=== PATIENT | female | born 1960 | race Caucasian/White ===

== ENCOUNTER 2020-08-15 08:49 | Observation (INO) | payer OTHER, MEDICAID ==
[2020-08-15] MEDS ORDERED: Sodium Chloride 0.9% 10 ML Syringe FLUSH PRN (08:54)
[2020-08-15] MEDS ORDERED: Lactated Ringers 1,000 ML IV SCH (09:00)
[2020-08-15] MEDS ORDERED: Diphtheria,Pertussis(Acell),Tetanus Vaccine 0.5 ML Syringe IM ONE (09:38)
[2020-08-15] MEDS ORDERED: HYDROmorphone 1 MG/ML Syringe IVPUSH ONE (09:50)
[2020-08-15] MEDS ORDERED: Sodium Chloride 0.9% 1,000 ML IV SCH (10:00)
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
--- NOTE | 2020-08-15 10:49 | CR ---
Right tibia and fibula: AP and lateral views of the right tibia and fibula were obtained. Chondrocalcinosis is noted within the menisci of the knee. No acute fracture, dislocation or other bony abnormality is appreciated. Impression: 1. Chondrocalcinosis within the knee. 2. Nothing acute is otherwise seen on right tibia and fibula study. Diagnostic code #2
--- NOTE | 2020-08-15 10:49 | CR ---
Pelvis: AP view of the pelvis was obtained. Comparison: No prior study is available. Prominent acetabulum are seen within both hips. Sacroiliac joints are normal. No acute fracture or other abnormality is appreciated. Impression: 1. Slight hip findings which are chronic. 2. Nothing acute is otherwise seen on portable AP chest x-ray. Diagnostic code #2
--- NOTE | 2020-08-15 11:38 | CR ---
Left ankle: 3 views of the left ankle were obtained. Comparison: No prior ankle study is available. Ankle mortise is symmetric. No acute fracture, dislocation or other bony abnormality is appreciated. Impression: 1. Nothing acute is seen on left ankle exam. Diagnostic code #1
--- NOTE | 2020-08-15 11:39 | CR ---
Chest: Portable supine view of the chest was obtained. Comparison: No prior chest imaging. Mild atelectasis is seen within the lateral left costophrenic angle and within portions of the right lung. Lungs otherwise are clear with no acute parenchymal change. Heart size and mediastinum are normal. No pneumothorax is seen. No bony abnormality is definitely appreciated. Impression: 1. Mild atelectasis. 2. Nothing acute is otherwise seen on supine portable chest x-ray. Diagnostic code #2
--- NOTE | 2020-08-15 11:49 | CT ---
Head CT Technique: Multiple axial sections through the brain were obtained. Intravenous contrast was not utilized. Reconstructed coronal and sagittal images were obtained. Comparison: No prior study. Findings: Diffuse soft tissue swelling is noted within the right-sided scalp with a small amount of soft tissue hematoma. Ventricles along with basal cisterns and sulci over the convexities appear within normal limits for the patient's age. No abnormal parenchymal densities are seen. No evidence of intracranial hemorrhage. No midline shift or mass-effect is appreciated. Bone window settings were reviewed which show no acute mastoid sinus finding or paranasal sinus finding. No acute calvarial abnormality is appreciated. Impression: 1. Diffuse soft tissue swelling within the right scalp as well as a small amount of hematoma. 2. No acute intracranial abnormality is appreciated. Diagnostic code #2
--- NOTE | 2020-08-15 11:54 | CR ---
Bilateral knees: AP view of both knees were obtained as well as lateral study. Chondrocalcinosis is noted within both medial and lateral menisci on both sides of the knees. No joint effusion is seen on either side. No acute fracture or other abnormality is appreciated. Impression: 1. Chondrocalcinosis within the menisci on both knees. 2. Nothing acute is otherwise seen on 2 view bilateral knee exam. Diagnostic code #2
[2020-08-15] MEDS ORDERED: Lidocaine/EPINEPHrine/Tetracaine Soln 1 ML TOP ONE (12:54)
[2020-08-15] MEDS ORDERED: HYDROmorphone 0.5 MG/0.5 ML Syringe IVPUSH ONE (12:58)
--- NOTE | 2020-08-15 13:53 | CT ---
CT cervical spine Technique: Multiple axial sections were obtained from above C1 inferiorly through the bottom of T1. Reconstructed coronal and sagittal images were obtained. Comparison: No previous cervical spine exam is seen. Findings: Degenerative apophyseal changes at C3-4 causes moderate left-sided neural foraminal stenosis. Mild left-sided neural foraminal stenosis is noted at C4-5 which is due to degenerative apophyseal change. Other neural foramina are patent with no additional neural foraminal stenosis seen. No central canal stenosis is seen. Minimal spondylolisthesis is noted at C4-5 due to degenerative apophyseal change. Degenerative apophyseal change is also noted throughout other levels of the cervical spine. No acute fracture is seen. No acute subluxation is seen. Mild scoliosis is noted on the reconstructed AP views. There is fairly severe degenerative change noted within both temporomandibular joints. Impression: 1. Degenerative change as noted above with mild scoliosis. 2. Slight spondylolisthesis at C4-5 compatible with degenerative apophyseal change. 3. No acute fracture is seen. Diagnostic code #2
--- NOTE | 2020-08-15 13:59 | CT ---
CT lumbar spine Technique: Multiple axial sections were obtained from above the L1-2 disc inferiorly through the L5-S1 disc. Reconstructed sagittal and coronal images were obtained. Comparison: No prior lumbar spine imaging is available. Findings: Mild diffuse degenerative apophyseal change is noted. Vertebral body heights and disc spaces are maintained. Slight posterior disc bulging is seen to the left of midline at L4-5. No central canal stenosis or neural foraminal stenosis is seen. Slight scoliosis is noted. No fracture or subluxation is seen. Impression: 1. Minimal degenerative change. Mild scoliosis. 2. No acute fracture or subluxation is appreciated on CT study of the lumbar spine. Diagnostic code #2
--- NOTE | 2020-08-15 14:01 | CT ---
CT thoracic spine Technique: Multiple axial sections were obtained through the thoracic spine. Reconstructed coronal and sagittal images were obtained. Comparison: No prior thoracic spine imaging is available. Findings: Slight scoliosis is noted. Minimal degenerative apophyseal change is seen. Mild compression deformity is noted within T12. There are felt to be acute fracture lines present which likely represent acute compression deformity. Very minimal posterior bulging of the posterior vertebral line is seen by several millimeters. No central canal stenosis is noted. Other vertebral body heights are maintained. Other disc spaces are maintained. Mild scattered endplate osteophytes are noted. No additional fracture or other abnormality is appreciated. Impression: 1. Moderate compression deformity of T12 which is likely new. 2. Mild degenerative change. No other acute abnormality is appreciated. Diagnostic code #3
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
[2020-08-15] MEDS ORDERED: Acetaminophen 325 MG Tab PO PRN (16:01)
[2020-08-15] MEDS ORDERED: Ondansetron 4 MG/2 ML SDV IVPUSH PRN (16:02)
[2020-08-15] MEDS: Acetaminophen/HYDROcodone 325-10 MG Tab PO PRN ×2 (17:00→20:59)
[2020-08-15] MEDS ORDERED: NALTREXONE 4.5 MG PO SCH (21:00)
[2020-08-16] MEDS: Acetaminophen/HYDROcodone 325-10 MG Tab PO PRN ×3 (01:22→10:58)
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
== END 2020-08-16 10:50 | disposition home or self-care (01) ==
LOC: JD.ED 08:49 → JD.MS 14:27
PROVIDERS: ADMIT Surgery; ATTEND Surgery
DX: S80.11XA Contusion of right lower leg, initial encounter (principal); S22.000A Wedge compression fracture of unspecified thoracic vertebra, initial encounter for closed fracture; S00.03XA Contusion of scalp, initial encounter; Z88.0 Allergy status to penicillin; Z98.890 Other specified postprocedural states; V89.2XXA Person injured in unspecified motor-vehicle accident, traffic, initial encounter; Z20.822 Contact with and (suspected) exposure to COVID-19
CPT/HCPCS: 36415; 70450; 71045; 72125; 72128; 72131; 72170; 73560; 73590; 73610; 80053; 80306; 80307; 81001; 83690; 85025; 85610; 85730; 87635; 90715; A9270; J1170; J7030; 90471; 96374; 96376; 99284; 99285-25; G0378; U0002

== ENCOUNTER 2020-12-05 11:14 | Emergency (ER) | payer SELFPAY ==
--- NOTE | 2020-12-05 11:46 | EDM.PDOC ---
ED HPI GENERAL MEDICAL PROBLEM - General Chief Complaint: Respiratory Problem Stated Complaint: COVID /SPOUSE IS POSITIVE Time Seen by Provider: 12/05/20 11:40 Source of Information: Reports: Patient History Limitations: Reports: No Limitations - History of Present Illness INITIAL COMMENTS - FREE TEXT/NARRATIVE: 60-year-old female presents the emergency department today with complaints of cough, shortness of breath, headache, generalized body aches, nausea, diarrhea. Patient states that 3 days ago her toes have been tested positive for Covid. She developed the onset of her symptoms with a headache and sore throat approximately 1 week ago. She states that they progressed into cough shortness of breath generalized body aches nausea and diarrhea. She has denied vomiting. She states she has had decreased appetite over the past week. She denies any abdominal pain. She denies any urinary symptoms. She states she gets extremely shortness of breath with any exertion. She has not had her Covid vaccination and she has not had Covid. 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 Primary care provider is Mai Delgadillo NP. - Related Data Allergies Allergy/AdvReac Type Severity Reaction Status Date / Time Penicillins Allergy Rash Verified 12/05/20 11:51 sulfamethoxazole Allergy Swollen Verified 12/05/20 11:51 [From Bactrim] Tongue tetracycline Allergy Rash Verified 12/05/20 11:51 trimethoprim [From Bactrim] Allergy Swollen Verified 12/05/20 11:51 Tongue Home Meds: Home Meds Naltrexone 4.5 mg PO BEDTIME 08/15/20 [History] Past Medical History HEENT History: Reports: Cataract, Impaired Vision Other HEENT History: wears eyeglasses Cardiovascular History: Reports: Heart Murmur Genitourinary History: Reports: UTI, Recurrent BARREL RACER History: Reports: - Infectious Disease History Infectious Disease History: Reports: Chicken Pox, Influenza, Measles - Past Surgical History HEENT Surgical History: Reports: Adenoidectomy, Tonsillectomy Female Surgical History: Reports: Section Social & Family History - Family History Neurological: Reports: CVA, Seizure - Caffeine Use Caffeine Use: Reports: Coffee Caffeine Use Comment: Drinks about 3 cups per day ED ROS GENERAL - Review of Systems Review Of Systems: Comprehensive ROS is negative, except as noted in HPI. ED EXAM, GENERAL - Physical Exam Exam: See Below Exam Limited By: No Limitations General Appearance: Alert, WD/WN, Mild Distress Ears: Normal External Exam, Hearing Grossly Normal Nose: Normal Inspection Throat/Mouth: Normal Inspection, Normal Lips, Normal Voice, No Airway Compromise Head: Atraumatic Neck: Normal Inspection, Supple Respiratory/Chest: No Respiratory Distress, No Accessory Muscle Use, Chest Non- Tender, Crackles (Fine crackles noted to bilateral bases). No: Normal Breath Sounds (Fine crackles noted to bilateral bases) Cardiovascular: Normal Peripheral Pulses, Regular Rate, Rhythm, No Edema, No Murmur Peripheral Pulses: 2+: Radial (L), Radial (R) GI/Abdominal: Normal Bowel Sounds, Soft, Non-Tender, No Distention (Female) Exam: Deferred Rectal (Female) Exam: Deferred Back Exam: Normal Inspection Extremities: Normal Inspection, Normal Range of Motion, Non-Tender, No Pedal Edema, Normal Capillary Refill Neurological: Alert, Oriented, Normal Cognition Psychiatric: Normal Affect, Normal Mood Skin Exam: Warm, Dry, Intact, Normal Color, No Rash Lymphatic: No Adenopathy #1 Interpretation EKG Date: 12/05/20 Time: 12:24 Rhythm: NSR Rate (Beats/Min): 90 [place]: Normal P-Wave: Present QRS: Normal ST-T: Normal QT: Normal Comparison: NA - No Prior EKG EKG Interpretation Comments: Per Dr. Rodarte interpretation: Normal sinus rhythm at 90 bpm. Course - Vital Signs Text/Narrative:: As stated above patient with initial onset of symptoms of headache and sore throat approximately 5 days ago which progressed into fatigue, generalized body aches, cough, shortness of breath, nausea, diarrhea and decreased appetite. She states she has had the chills however has not checked fever as she has been taking Tylenol pretty consistently every 4 hours for the body aches and headache. Patient will be tested for Covid and will have Covid quick pick lab studies as well. We will obtain an EKG and portable view of the chest. O2 saturations in the emergency department are 94% at the time of my assessment. She does have fine crackles noted to the bilateral bases. Last Recorded V/S: Last Vital Signs Temp 98.2 F 12/05/20 11:45 Pulse 91 12/05/20 16:45 Resp 16 12/05/20 16:45 BP 129/87 12/05/20 16:45 Pulse Ox 92 L 12/05/20 16:45 - Orders/Labs/Meds Orders: Active Orders 24 hr Category Date Time Status EKG Documentation Completion [RC] STAT Care 12/05/20 12:03 Active RT Incentive Spirometry [RC] Q1HWA Care 12/05/20 14:22 Active Vital Signs [RC] Q15M Care 12/05/20 15:15 Active CULTURE URINE [MREF] Stat Lab 12/05/20 13:10 Received EPINEPHrine [Adrenalin] Med 12/05/20 14:34 Active 0.3 mg IM ONETIME PRN Famotidine [Pepcid] Med 12/05/20 14:34 Active 20 mg IVPUSH ONETIME PRN Sodium Chloride 0.9% [Saline Flush] Med 12/05/20 14:45 Active 30 ml FLUSH ASDIRECTED diphenhydrAMINE [Benadryl] Med 12/05/20 14:34 Active 50 mg IVPUSH ONETIME PRN methylPREDNISolone Sod Succ [Solu-MEDROL] Med 12/05/20 14:34 Active 125 mg IVPUSH ONETIME PRN Isolation [COMM] Stat Oth 12/05/20 12:02 Ordered RT Flutter Valve Therapy [RT Acapella] [RESPCARE] Stat Oth 12/05/20 14:22 Active Medication Orders Diphenhydramine HCl (Diphenhydramine 50 Mg/Ml Sdv) 50 mg IVPUSH ONETIME PRN PRN Reason: hypersensitivity reaction Epinephrine HCl (Epinephrine 1 Mg/Ml Sdv) 0.3 mg IM ONETIME PRN PRN Reason: hypersensitivity reaction Famotidine (Famotidine 20 Mg/2 Ml Sdv) 20 mg IVPUSH ONETIME PRN PRN Reason: hypersensitivity reaction Methylprednisolone Sodium Succinate (Methylprednisolone Sodium Succinate 125 Mg/2 Ml Sdv) 125 mg IVPUSH ONETIME PRN PRN Reason: hypersensitivity reaction Sodium Chloride (Sodium Chloride 0.9% 10 Ml Syringe) 30 ml FLUSH ASDIRECTED [facility] Admin: 12/05/20 15:45 Dose: 30 ml Documented by: MEI Labs: Laboratory Tests 12/05/20 12/05/20 12/05/20 Range/Units 11:50 12:20 12:20 WBC (3.98-10.04) K/mm3 RBC (3.98-5.22) M/mm3 Hgb (11.2-15.7) gm/dl Hct (34.1-44.9) % MCV (79.4-94.8) fl MCH (25.6-32.2) pg MCHC (32.2-35.5) g/dl RDW Std Deviation (36.4-46.3) fL Plt Count (182-369) K/mm3 MPV (9.4-12.3) fl Neut % (Auto) (34.0-71.1) % Lymph % (Auto) (19.3-51.7) % [place] % (Auto) (4.7-12.5) % Eos % (Auto) (0.7-5.8) Baso % (Auto) (0.1-1.2) % Neut # (Auto) (1.56-6.13) K/mm3 Lymph # (Auto) (1.18-3.74) K/mm3 [place] # (Auto) (0.24-0.36) K/mm3 Eos # (Auto) (0.04-0.36) K/mm3 Baso # (Auto) (0.01-0.08) K/mm3 PT 10.6 (9.7-12.0) SECONDS INR 0.99 APTT 33.6 H (21.7-31.4) SECONDS D-Dimer, Quantitative 0.72 H (0.19-0.50) mg/L Sodium (136-145) mEq/L Potassium (3.5-5.1) mEq/L Chloride (98-107) mEq/L Carbon Dioxide (21-32) mEq/L Anion Gap (5-15) BUN (7-18) mg/dL Creatinine (0.55-1.02) mg/dL Est Cr Clr Drug Dosing mL/min Estimated GFR (MDRD) (>60) mL/min BUN/Creatinine Ratio (14-18) Glucose (70-99) mg/dL Lactic Acid (0.4-2.0) mmol/L Calcium (8.5-10.1) mg/dL Ferritin 200 (8-252) ng/ml Total Bilirubin (0.2-1.0) mg/dL Direct Bilirubin (0.0-0.2) mg/dl Indirect Bilirubin (0.1-1.0) mg/dL AST (15-37) U/L ALT (14-59) U/L Alkaline Phosphatase (46-116) U/L Lactate Dehydrogenase (81-234) U/L C-Reactive Protein (<1.0) mg/dL Total Protein (6.4-8.2) g/dl Albumin (3.4-5.0) g/dl Globulin gm/dL Albumin/Globulin Ratio (1-2) Urine Color (Yellow) Urine Appearance (Clear) Urine pH (5.0-8.0) Ur Specific [place] (1.005-1.030) Urine Protein (Negative) Urine Glucose (UA) (Negative) Urine Ketones (Negative) Urine Occult Blood (Negative) Urine Nitrite (Negative) Urine Bilirubin (Negative) Urine Urobilinogen (0.2-1.0) Ur Leukocyte Esterase (Negative) Urine RBC (0-5) /hpf Urine WBC (0-5) /hpf Ur Epithelial Cells (0-5) /hpf Urine Bacteria (FEW) /hpf Urine Mucus (FEW) /hpf SARS-CoV-2 RNA (OWEN) Positive H (NEGATIVE) 12/05/20 12/05/20 12/05/20 Range/Units 12:20 12:20 12:20 WBC 4.77 (3.98-10.04) K/mm3 RBC 5.39 H (3.98-5.22) M/mm3 Hgb 15.3 (11.2-15.7) gm/dl Hct 45.9 H (34.1-44.9) % MCV 85.2 (79.4-94.8) fl MCH 28.4 (25.6-32.2) pg MCHC 33.3 (32.2-35.5) g/dl RDW Std Deviation 46.2 (36.4-46.3) fL Plt Count 182 D (182-369) K/mm3 MPV 9.3 L (9.4-12.3) fl Neut % (Auto) 68.8 (34.0-71.1) % Lymph % (Auto) 23.7 (19.3-51.7) % [place] % (Auto) 7.1 (4.7-12.5) % Eos % (Auto) 0 L (0.7-5.8) Baso % (Auto) 0.2 (0.1-1.2) % Neut # (Auto) 3.28 (1.56-6.13) K/mm3 Lymph # (Auto) 1.13 L (1.18-3.74) K/mm3 [place] # (Auto) 0.34 (0.24-0.36) K/mm3 Eos # (Auto) 0.00 L (0.04-0.36) K/mm3 Baso # (Auto) 0.01 (0.01-0.08) K/mm3 PT (9.7-12.0) SECONDS INR APTT (21.7-31.4) SECONDS D-Dimer, Quantitative (0.19-0.50) mg/L Sodium 137 (136-145) mEq/L Potassium 3.5 (3.5-5.1) mEq/L Chloride 101 (98-107) mEq/L Carbon Dioxide 25 (21-32) mEq/L Anion Gap 14.5 (5-15) BUN 9 (7-18) mg/dL Creatinine 0.6 (0.55-1.02) mg/dL Est Cr Clr Drug Dosing 84.54 mL/min Estimated GFR (MDRD) > 60 (>60) mL/min BUN/Creatinine Ratio 15.0 (14-18) Glucose 106 H (70-99) mg/dL Lactic Acid 0.5 (0.4-2.0) mmol/L Calcium 8.6 (8.5-10.1) mg/dL Ferritin (8-252) ng/ml Total Bilirubin 0.8 (0.2-1.0) mg/dL Direct Bilirubin 0.20 (0.0-0.2) mg/dl Indirect Bilirubin 0.6 (0.1-1.0) mg/dL AST 30 (15-37) U/L ALT 36 (14-59) U/L Alkaline Phosphatase 66 (46-116) U/L Lactate Dehydrogenase 187 (81-234) U/L C-Reactive Protein 7.7 H* (<1.0) mg/dL Total Protein 7.2 (6.4-8.2) g/dl Albumin 3.5 (3.4-5.0) g/dl Globulin 3.7 gm/dL Albumin/Globulin Ratio 1.0 (1-2) Urine Color (Yellow) Urine Appearance (Clear) Urine pH (5.0-8.0) Ur Specific [place] (1.005-1.030) Urine Protein (Negative) Urine Glucose (UA) (Negative) Urine Ketones (Negative) Urine Occult Blood (Negative) Urine Nitrite (Negative) Urine Bilirubin (Negative) Urine Urobilinogen (0.2-1.0) Ur Leukocyte Esterase (Negative) Urine RBC (0-5) /hpf Urine WBC (0-5) /hpf Ur Epithelial Cells (0-5) /hpf Urine Bacteria (FEW) /hpf Urine Mucus (FEW) /hpf SARS-CoV-2 RNA (OWEN) (NEGATIVE) 12/05/20 Range/Units 13:50 WBC (3.98-10.04) K/mm3 RBC (3.98-5.22) M/mm3 Hgb (11.2-15.7) gm/dl Hct (34.1-44.9) % MCV (79.4-94.8) fl MCH (25.6-32.2) pg MCHC (32.2-35.5) g/dl RDW Std Deviation (36.4-46.3) fL Plt Count (182-369) K/mm3 MPV (9.4-12.3) fl Neut % (Auto) (34.0-71.1) % Lymph % (Auto) (19.3-51.7) % [place] % (Auto) (4.7-12.5) % Eos % (Auto) (0.7-5.8) Baso % (Auto) (0.1-1.2) % Neut # (Auto) (1.56-6.13) K/mm3 Lymph # (Auto) (1.18-3.74) K/mm3 [place] # (Auto) (0.24-0.36) K/mm3 Eos # (Auto) (0.04-0.36) K/mm3 Baso # (Auto) (0.01-0.08) K/mm3 PT (9.7-12.0) SECONDS INR APTT (21.7-31.4) SECONDS D-Dimer, Quantitative (0.19-0.50) mg/L Sodium (136-145) mEq/L Potassium (3.5-5.1) mEq/L Chloride (98-107) mEq/L Carbon Dioxide (21-32) mEq/L Anion Gap (5-15) BUN (7-18) mg/dL Creatinine (0.55-1.02) mg/dL Est Cr Clr Drug Dosing mL/min Estimated GFR (MDRD) (>60) mL/min BUN/Creatinine Ratio (14-18) Glucose (70-99) mg/dL Lactic Acid (0.4-2.0) mmol/L Calcium (8.5-10.1) mg/dL Ferritin (8-252) ng/ml Total Bilirubin (0.2-1.0) mg/dL Direct Bilirubin (0.0-0.2) mg/dl Indirect Bilirubin (0.1-1.0) mg/dL AST (15-37) U/L ALT (14-59) U/L Alkaline Phosphatase (46-116) U/L Lactate Dehydrogenase (81-234) U/L C-Reactive Protein (<1.0) mg/dL Total Protein (6.4-8.2) g/dl Albumin (3.4-5.0) g/dl Globulin gm/dL Albumin/Globulin Ratio (1-2) Urine Color Light yellow (Yellow) Urine Appearance Clear (Clear) Urine pH 6.5 (5.0-8.0) Ur Specific [place] 1.020 (1.005-1.030) Urine Protein Negative (Negative) Urine Glucose (UA) Negative (Negative) Urine Ketones 2+ H (Negative) Urine Occult Blood Negative (Negative) Urine Nitrite Negative (Negative) Urine Bilirubin Negative (Negative) Urine Urobilinogen 0.2 (0.2-1.0) Ur Leukocyte Esterase 1+ H (Negative) Urine RBC 0-5 (0-5) /hpf Urine WBC 5-10 H (0-5) /hpf Ur Epithelial Cells 10-20 H (0-5) /hpf Urine Bacteria Moderate H (FEW) /hpf Urine Mucus Moderate H (FEW) /hpf SARS-CoV-2 RNA (OWEN) (NEGATIVE) Meds: Medications Generic Name Dose Route Start Last Admin Trade Name Freq PRN Reason Stop Dose Admin Diphenhydramine HCl 50 mg 12/05/20 14:34 Diphenhydramine 50 Mg/Ml Sdv IVPUSH ONETIME PRN hypersensitivity reaction Epinephrine HCl 0.3 mg 12/05/20 14:34 Epinephrine 1 Mg/Ml Sdv IM ONETIME PRN hypersensitivity reaction Famotidine 20 mg 12/05/20 14:34 Famotidine 20 Mg/2 Ml Sdv IVPUSH ONETIME PRN hypersensitivity reaction Methylprednisolone Sodium Succinate 125 mg 12/05/20 14:34 Methylprednisolone Sodium Succinate 125 Mg/2 Ml Sdv IVPUSH ONETIME PRN hypersensitivity reaction Sodium Chloride 30 ml 12/05/20 14:45 12/05/20 15:45 Sodium Chloride 0.9% 10 Ml Syringe FLUSH 30 ml ASDIRECTED FARZANA Administration Discontinued Medications Generic Name Dose Route Start Last Admin Trade Name Freq PRN Reason Stop Dose Admin Acetaminophen 975 mg 12/05/20 15:49 12/05/20 16:15 Acetaminophen 325 Mg Tab PO 12/05/20 15:50 975 mg NOW ONE Administration CASIRIVIMAB/IMDEVIMAB 10 ml/ 110 mls @ 220 mls/hr 12/05/20 14:34 12/05/20 15:13 Sodium Chloride IV 12/05/20 15:03 220 mls/hr ONETIME ONE Administration - Re-Assessments/Exams Free Text/Narrative Re-Assessment/Exam: 12/05/20 12:49 Lab called to inform me that the patient's Covid test is positive. 12/05/20 14:25 Radiologist impression portable view of the chest: 1. Probable bilateral atelectasis within both lung bases. 2. Nothing acute is otherwise seen. I have ordered an incentive spirometer for the patient with acapella. Hematology reveals a WBC of 4.77, hemoglobin 15.3, hematocrit 45.9, platelet count 182 Pro time 10.6, INR 0.99, PTT 33.6, D-dimer 0.72 Chemistries are essentially unremarkable, lactic acid 0.5, ferritin 200, C- reactive protein 7.7 Urinalysis shows 2+ ketones, 1+ leukocyte Estrace, 5-10 WBC, 10-20 epithelial cells, moderate bacteria, moderate mucus, serology reveals Covid positive. 12/05/20 14:47 Due to the patient testing positive for covid and her being immunocompromised, I feel she is a candidate for Regeneron. I have discussed this with the patient. She states that her just received the antibodies on Saturday and she is wanting to receive them as well. I spoke with the patient to provide information about Regeneron for herself. I offered the patient and caregiver ROBERTA Quiroz fax sheet to read and review. I stated the drug has been approved by an emergency you the authorization process that has not been fully FDA reviewed or approved. The patient meets the [place] requirements. I discussed there are other potential treatment options that are currently not FDA approved to treat COVID-19. Offered opportunity to ask questions and all questions were answered. The patient voiced understanding and agreed to proceed with the treatment for herself. I will order Tylenol for the patient as she states she is having body aches and a headache. 12/05/20 16:55 Patient tolerated Regeneron treatment. She has been evaluated for an hour after Regeneron had infused and is doing well. She will be discharged to home. Departure - Departure Time of Disposition: 16:57 Disposition: Home, Self-Care 01 Condition: Good Clinical Impression: COVID-19 - Discharge Information Instructions: COVID-19 Vaccine Information, 10 Things You Can Do to Manage Your COVID-19 Symptoms at Home - CDC, Prevent the Spread of COVID-19 if You Are Sick - [facility], COVID-19: Quarantine vs. Isolation - [facility] Referrals: Mai Delgadillo, [employer] [Primary Care Provider] - Forms: ED Department Discharge Additional Instructions: You were seen in the emergency department today and tested positive for Covid. You did qualify for Regeneron, monoclonal antibody, treatment. You were also given instructions on how to use an incentive spirometer and Acapella. Recommend that you continue to use this every hour while awake to prevent pneumonia. Continue to drink plenty of fluids. Take Tylenol or ibuprofen for fever and generalized body aches per label directions. Should your conditions worsen or change, do not hesitate returning to the emergency department. Sepsis Event Note (ED) - Focused Exam Vital Signs: Vital Signs Temp Pulse Resp BP Pulse Ox 12/05/20 16:45 91 16 129/87 92 L 12/05/20 16:30 90 18 122/79 90 L 12/05/20 16:15 94 18 136/90 91 L 12/05/20 16:00 95 18 131/81 92 L 12/05/20 15:45 95 18 125/86 92 L 12/05/20 15:30 97 18 125/86 91 L 12/05/20 15:15 100 18 127/86 90 L 12/05/20 11:45 98.2 F 105 H 18 142/78 H 90 L - My Orders Last 24 Hours: My Active Orders 12/05/20 12:02 Isolation [COMM] Stat 12/05/20 12:03 EKG Documentation Completion [RC] STAT 12/05/20 13:10 CULTURE URINE [MREF] Stat 12/05/20 14:22 RT Incentive Spirometry [RC] Q1HWA RT Flutter Valve Therapy [RT Acapella] [RESPCARE] Stat 12/05/20 14:34 EPINEPHrine [Adrenalin] 0.3 mg IM ONETIME PRN Famotidine [Pepcid] 20 mg IVPUSH ONETIME PRN diphenhydrAMINE [Benadryl] 50 mg IVPUSH ONETIME PRN methylPREDNISolone Sod Succ [Solu-MEDROL] 125 mg IVPUSH ONETIME PRN 12/05/20 14:45 Sodium Chloride 0.9% [Saline Flush] 30 ml FLUSH ASDIRECTED 12/05/20 15:15 Vital Signs [RC] Q15M - Assessment/Plan Last 24 Hours: My Active Orders 12/05/20 12:02 Isolation [COMM] Stat 12/05/20 12:03 EKG Documentation Completion [RC] STAT 12/05/20 13:10 CULTURE URINE [MREF] Stat 12/05/20 14:22 RT Incentive Spirometry [RC] Q1HWA RT Flutter Valve Therapy [RT Acapella] [RESPCARE] Stat 12/05/20 14:34 EPINEPHrine [Adrenalin] 0.3 mg IM ONETIME PRN Famotidine [Pepcid] 20 mg IVPUSH ONETIME PRN diphenhydrAMINE [Benadryl] 50 mg IVPUSH ONETIME PRN methylPREDNISolone Sod Succ [Solu-MEDROL] 125 mg IVPUSH ONETIME PRN 12/05/20 14:45 Sodium Chloride 0.9% [Saline Flush] 30 ml FLUSH ASDIRECTED 12/05/20 15:15 Vital Signs [RC] Q15M
--- NOTE | 2020-12-05 13:52 | CR ---
Chest: Portable view of the chest was obtained. Comparison: Prior chest x-ray of 08/15/20. Linear densities are seen within both lung bases which are most likely due to areas of atelectasis. Lungs otherwise are clear. Heart size and mediastinum are normal. No definite acute osseous finding is seen. Impression: 1. Probable bilateral atelectasis within both lung bases. 2. Nothing acute is otherwise seen. Diagnostic code #2
[2020-12-05] MEDS ORDERED: EPINEPHrine 1 MG/ML SDV IM PRN (14:34)
[2020-12-05] MEDS ORDERED: Famotidine 20 MG/2 ML SDV IVPUSH PRN (14:34)
[2020-12-05] MEDS ORDERED: methylPREDNISolone Sodium Succinate 125 MG/2 ML SDV IVPUSH PRN (14:34)
[2020-12-05] MEDS ORDERED: diphenhydrAMINE 50 MG/ML SDV IVPUSH PRN (14:34)
[2020-12-05] MEDS ORDERED: Sodium Chloride 0.9% 10 ML Syringe FLUSH SCH (14:45)
[2020-12-05] MEDS ORDERED: Acetaminophen 325 MG Tab PO ONE (15:49)
== END 2020-12-05 17:15 | disposition home or self-care (01) ==
LOC: JD.ED 11:14
DX: U07.1 COVID-19 (principal); Z88.0 Allergy status to penicillin; Z88.2 Allergy status to sulfonamides; Z88.1 Allergy status to other antibiotic agents
CPT/HCPCS: 36415; 71045; 80048; 80076; 81001; 82728; 83605; 83615; 85025; 85379; 85610; 85730; 86140; 87086; 87635; 93005; 94667; 99285; A9270; M0243; Q0243; 93010; 99284; U0002